=== PATIENT | female | born 1990 | race Caucasian/White ===

== ENCOUNTER 2018-08-01 18:37 | Emergency (ER) | payer OTHER ==
[2018-08-01] MEDS: ONDANSETRON (ODT) 4 MG TAB ODT (20:35)
[2018-08-01] MEDS: DIPHENHYDRAMINE 25 MG CAP PO (20:42)
[2018-08-01] MEDS: KETOROLAC 30 MG INJ IM (20:43)
== END 2018-08-01 21:31 | disposition home or self-care (01) ==
LOC: FTE 18:37
DX: R51 Headache (principal)
CPT/HCPCS: 81025; 96372; 99284-25